=== PATIENT | male | born 1950 | race American Indian/Alaskan Native ===

== ENCOUNTER 2020-03-28 16:47 | Emergency (ER) | payer OTHER ==
[2020-03-28 17:16] VITALS: BP 139/73
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
[2020-03-28] MEDS ORDERED: ACETAMINOPHEN 500 MG TAB PO ONE (20:35)
== END 2020-03-28 20:44 | disposition home or self-care (01) ==
LOC: ED 16:47
DX: M62.838 Other muscle spasm (principal); M62.830 Muscle spasm of back; I10 Essential (primary) hypertension; V89.2XXA Person injured in unspecified motor-vehicle accident, traffic, initial encounter; Y93.89 Activity, other specified; Y92.410 Unspecified street and highway as the place of occurrence of the external cause; Y99.8 Other external cause status
CPT/HCPCS: 70450; 72125; 72128

== ENCOUNTER 2021-01-29 18:15 | Emergency (ER) | payer MEDICARE, OTHER | END 2021-01-29 20:25 | disposition left against medical advice (07) | LOC: ED 18:15 | DX: I10 Essential (primary) hypertension (principal); Z53.21 Procedure and treatment not carried out due to patient leaving prior to being seen by health care provider ==